=== PATIENT | male | born 1955 | race Caucasian/White ===

== ENCOUNTER 2016-07-01 22:21 | Emergency (ER) | payer SELFPAY ==
[2016-07-01 22:57] VITALS: BP 133/88
[2016-07-01] MEDS ORDERED: Acetaminophen/HYDROcodone 325-5 MG Tab PO ONE (23:53)
[2016-07-01] MEDS ORDERED: valACYclovir 1,000 MG Tab PO STA (23:53)
--- NOTE | 2016-07-01 23:59 | EDM.PDOC ---
ED HPI GENERAL MEDICAL PROBLEM - General Chief Complaint: Lower Extremity Injury/Pain Stated Complaint: POSS RASH ON LEFT LEG Time Seen by Provider: 07/01/16 23:22 Source of Information: Reports: Patient, Family (, daughter), RN Notes Reviewed History Limitations: Reports: No Limitations - History of Present Illness INITIAL COMMENTS - FREE TEXT/NARRATIVE: The patient states that he developed left sciatica 9 days ago, then developed a rash on his left leg, extending to his foot about 4 or 5 days ago. On further questioning, the patient states that by sciatica, he means a burning sensation extending from his lower back down his left lower extremity. The rash then developed on the sole of his left foot, and up the lateral aspect of his left leg onto the lateral aspect of his distal thigh, along the same course as the burning sensation. The rash is tender to palpation, and is made worse with using his left lower extremity. No weakness, tingling, or numbness to the left lower extremity. No prior similar symptoms. The patient does not have a PCP, however, he is on diclofenac for arthritis of his knees and Lamisil for toenail onychomycosis. Back Pain Score (Numeric/FACES): 7 - Related Data Allergies Allergy/AdvReac Type Severity Reaction Status Date / Time No Known Allergies Allergy Verified 07/01/16 22:54 Home Meds: Home Meds Diclofenac Sodium 75 mg PO DAILY 07/01/16 [History] Terbinafine [LamISIL] 250 mg PO DAILY 07/01/16 [History] Hydrocodone/Acetaminophen [Weston 5-325 Tablet] 1 - 2 tab PO Q8H PRN #12 tablet 07/02/16 [Rx] valACYclovir [Valtrex] 1 tab PO Q8H #20 tablet 07/02/16 [Rx] Past Medical History HEENT History: Reports: Impaired Vision Other HEENT History: Wears glasses Musculoskeletal History: Reports: Arthritis (knees) Social & Family History - Tobacco Use Smoking Status *Q: Never Smoker - Alcohol Use Alcohol Use History: Yes Alcohol Use Frequency: Rarely - Recreational Drug Use Recreational Drug Use: No - Living Situation & Occupation Living situation: Reports: , with Spouse, with Family (Daughter) Occupation: Employed (Part-time construction) Review of Systems - Review of Systems Review Of Systems: See Below Constitutional: Reports: No Symptoms Eyes: Reports: No Symptoms Ears: Reports: No Symptoms Nose: Reports: No Symptoms Mouth/Throat: Reports: No Symptoms Respiratory: Reports: No Symptoms Cardiovascular: Reports: No Symptoms GI/Abdominal: Reports: No Symptoms Genitourinary: Reports: No Symptoms Musculoskeletal: Reports: No Symptoms Skin: Reports: No Symptoms Neurological: Reports: No Symptoms Psychiatric: Reports: No Symptoms Trauma Exam - Physical Exam Exam: See Below Exam Limited By: No Limitations General Appearance: Reports: Alert, WD/WN, No Apparent Distress Extremities: No Evidence of Injury, Normal Range of Motion, No Pedal Edema Skin: Reports: Rash (Acicular, extending from the lateral aspect of the left lower semi-, just above the knee, down the lateral aspect of the left leg, and onto the anterior aspect of the sole of the foot, entirely consistent with a L5 (only) distribution.) Course - Vital Signs Last Recorded V/S: Last Vital Signs Temp 36.6 C 07/01/16 22:55 Pulse 77 07/01/16 22:55 Resp 16 07/01/16 22:55 BP 133/88 07/01/16 22:55 Pulse Ox 96 07/01/16 22:55 - Orders/Labs/Meds Meds: Medications Discontinued Medications Generic Name Dose Route Start Last Admin Trade Name Freq PRN Reason Stop Dose Admin Hydrocodone Bitart/Acetaminophen 2 tab 07/01/16 23:53 07/02/16 00:14 Weston 325-5 Mg PO 07/01/16 23:54 2 tab ONETIME ONE Administration Valacyclovir HCl 1,000 mg 07/01/16 23:53 Valtrex PO 07/01/16 23:54 ONETIME STA Valacyclovir HCl 500 mg 07/02/16 00:10 07/02/16 00:14 Valtrex PO 07/02/16 00:11 1,000 mg ONETIME ONE Administration - Re-Assessments/Exams Free Text/Narrative Re-Assessment/Exam: 07/02/16 00:05 The patient appears to have shingles involving his left L5 distribution. Although he is greater than 72 hours from the onset of his symptoms, his daughter states that he is continuing to have new vesicular lesions, therefore antiviral therapy is still indicated, although, as explained to the patient and his family, will not likely be of much benefit. Additionally, I will start the patient on Weston. I explained that Weston will likely cause nausea and constipation, and that he is not to drive for 12 hours after taking Weston. I will refer him to the clinic for followup. Departure - Departure Time of Disposition: 00:07 Disposition: Home, Self-Care 01 Condition: fair Clinical Impression: Varicella zoster - Discharge Information Prescriptions: Hydrocodone/Acetaminophen [Weston 5-325 Tablet] 1 - 2 tab PO Q8H PRN #12 tablet PRN Reason: Pain (Severe 7-10) valACYclovir [Valtrex] 1 tab PO Q8H #20 tablet Instructions: VIS, Shingles - [facility] [place] Referrals: PCP,None [Primary Care Provider] - Forms: ED Department Discharge Additional Instructions: You were seen in the emergency room for pain running from your lower back down your left lower extremity, along with a rash to your foot, leg, and a bit on your thigh. You have shingles. You have been started on the anti-viral medicine outstretched. Take one tablet every 8 hours, as prescribed. Finish the entire prescription. You have been started on the anti-pain medicine Weston. You may take 1 to 2 tablets up to every 8 hours, as needed for pain. Do not drive or operate heavy machinery for 12 hours after taking Weston. Weston may cause nausea and will likely cause constipation, so consider taking a stool softener. Followup with Sunni Valenzuela in the clinic for any concerns. If any other problems, please do not hesitate to return to the ER.
[2016-07-02] MEDS ORDERED: valACYclovir 500 MG Tab PO ONE (00:10)
== END 2016-07-02 00:40 | disposition home or self-care (01) ==
LOC: JD.ED 22:21
DX: B01.9 Varicella without complication (principal); B02.8 Zoster with other complications; Z79.899 Other long term (current) drug therapy
CPT/HCPCS: 99283; A9270

== ENCOUNTER 2023-02-06 07:30 | Day surgery (SDC) | payer MEDICARE, BC ==
[~2023-02-06 07:30] MED LIST: Lactated Ringers 1,000 ML IV SCH; Sodium Chloride 0.9% 10 ML Syringe FLUSH PRN; Sodium Chloride 0.9% 10 ML Syringe FLUSH SCH
[2023-02-06] MEDS ORDERED: Bupivacaine 0.25% 10 ML SDV ONE (07:38)
[2023-02-06] MEDS ORDERED: fentaNYL 100 MCG/2 ML SDV ONE (08:01)
[2023-02-06] MEDS ORDERED: Midazolam 1 MG/ML 2 ML SDV ONE (08:02)
[2023-02-06] MEDS ORDERED: Propofol 200 MG/20 ML SDV ONE (08:02)
[2023-02-06] MEDS ORDERED: Lidocaine 1% PF 2 ML SDV ONE (08:15)
[2023-02-06] MEDS ORDERED: ceFAZolin 2 GM Vial ONE (08:28)
[2023-02-06] MEDS ORDERED: Ondansetron 4 MG/2 ML SDV ONE (08:30)
[2023-02-06] MEDS ORDERED: HYDROmorphone 0.5 MG/0.5 ML Syringe IVPUSH PRN (08:34)
[2023-02-06] MEDS ORDERED: fentaNYL 100 MCG/2 ML SDV IVPUSH PRN (08:34)
[2023-02-06] MEDS ORDERED: Lactated Ringers 1,000 ML ONE (08:58)
[2023-02-06 11:32] VITALS: BP 118/72; PULSE 52
== END 2023-02-06 10:55 | disposition home or self-care (01) ==
LOC: JD.SDS 07:30
PROVIDERS: ATTEND Orthopaedic Surgery
DX: G56.21 Lesion of ulnar nerve, right upper limb (principal); E78.5 Hyperlipidemia, unspecified; Z79.899 Other long term (current) drug therapy; Z87.891 Personal history of nicotine dependence
CPT/HCPCS: 64718; J0690; J2250; J2405; J2704; J3010; J3490; J7120

== ENCOUNTER 2024-04-29 07:35 | Day surgery (SDC) | payer MEDICARE ==
[~2024-04-29 07:35] MED LIST changes: -Lactated Ringers 1,000 ML IV SCH
[2024-04-29] MEDS: Lactated Ringers 1,000 ML IV SCH (08:00)
[2024-04-29 08:04] LABS: BASOPHILS ABSOLUTE AUTO 0.1 K/mm3 (0.0-0.2); BASOPHILS PERCENT AUTO 0.8 % (0.0-1.0); EOSINOPHILS ABSOLUTE AUTO 0.2 K/mm3 (0.0-0.4); HEMATOCRIT 49.2 % (42.0-52.0); HEMOGLOBIN 16.3 gm/dl (14.0-18.0); IMMATURE GRAN ABSOLUTE AUTO 0.02 K/mm3 (0.00-0.05); IMMATURE GRAN PERCENT AUTO 0.3 % (0.0-0.4); LYMPHOCYTES ABSOLUTE AUTO 1.9 K/mm3 (1.0-4.8); LYMPHOCYTES PERCENT AUTO 27.1 % (24.0-44.0); MEAN CORPUSCULAR HEMOGLOBIN 28.5 pg (28.0-32.0); MEAN CORPUSCULAR HGB CONC 33.1 g/dl (32.0-36.0); MEAN PLATELET VOLUME 9.5 fl (9.4-12.4); MONOCYTES ABSOLUTE AUTO 0.7 K/mm3 (0.0-0.8); MONOCYTES PERCENT AUTO 9.6 % (0.0-8.0); NEUTROPHILS ABSOLUTE AUTO 4.2 K/mm3 (1.8-7.7); NEUTROPHILS PERCENT AUTO 59.2 % (41.0-71.0); PLATELET COUNT,PLT 227 K/mm3 (150-400); RED BLOOD CELL COUNT 5.72 M/mm3 (4.52-5.90); WHITE BLOOD CELL COUNT,WBC 7.09 K/mm3 (3.9-11.3)
[2024-04-29] MEDS: Acetaminophen 325 MG Tab PO ONE (08:16)
[2024-04-29] MEDS: oxyCODONE ER 10 MG TAB.ER PO ONE (08:16)
[2024-04-29] MEDS: Pregabalin 25 MG Cap PO ONE (08:16)
[2024-04-29 08:36] LABS: INR 1.03; PROTHROMBIN TIME 10.9 SECONDS (9.7-12.0)
[2024-04-29] MEDS ORDERED: ceFAZolin 2 GM Vial ONE (09:17)
[2024-04-29] MEDS ORDERED: Propofol 200 MG/20 ML SDV ONE ×5 (09:19→11:57)
[2024-04-29] MEDS ORDERED: fentaNYL 100 MCG/2 ML SDV ONE (09:19)
[2024-04-29] MEDS ORDERED: dexmedeTOMIDine HCl 200 MCG/2 ML SDV ONE (09:27)
[2024-04-29] MEDS ORDERED: Dexamethasone 4 MG/ML 5 ML MDV ONE (09:27)
[2024-04-29] MEDS ORDERED: Ropivacaine 0.5% 5 MG/ML 30 ML SDV ONE (09:36)
[2024-04-29] MEDS ORDERED: EPINEPHrine 1 MG/ML SDV ONE (09:42)
[2024-04-29] MEDS ORDERED: Ondansetron 4 MG/2 ML SDV ONE (10:07)
[2024-04-29] MEDS ORDERED: ePHEDrine 50 MG/ML SDV ONE (10:39)
[2024-04-29] MEDS ORDERED: Lactated Ringers 1,000 ML ONE (11:11)
[2024-04-29] MEDS: Morphine 8 MG, EPINEPHrine 0.3 MG, Cefuroxime 750 MG, Ketorolac 30 MG, Sodium Chloride ... PRN (12:08)
[2024-04-29] MEDS: Tranexamic Acid 1,000 MG/10 ML Vial ONE (12:13)
[2024-04-29] MEDS: VANCOmycin 1 GM SDV ONE (12:13)
[2024-04-29] MEDS ORDERED: fentaNYL 100 MCG/2 ML SDV IVPUSH PRN (12:53)
[2024-04-29] MEDS ORDERED: HYDROmorphone 0.5 MG/0.5 ML Syringe IVPUSH PRN (12:53)
[2024-04-29] MEDS ORDERED: Ondansetron 4 MG/2 ML SDV IVPUSH PRN (12:53)
[2024-04-29] MEDS: oxyCODONE 5 MG Tab PO ONE (13:55)
[2024-04-29 14:50] VITALS: PULSE 77
[2024-04-29 15:53] VITALS: BP 114/74
== END 2024-04-29 15:40 ==
LOC: JD.SDS 07:35
PROVIDERS: ATTEND Orthopaedic Surgery
DX: M17.12 Unilateral primary osteoarthritis, left knee (principal); M23.52 Chronic instability of knee, left knee; E78.00 Pure hypercholesterolemia, unspecified; Z87.891 Personal history of nicotine dependence; Z79.899 Other long term (current) drug therapy
CPT/HCPCS: 0055T; 27447; 36415; 64447; 73560; 85025; 85610; 85730; 97116; 97161; A9270; C1713; C1776; J0171; J0690; J0697; J1100; J1885; J2272; J2405; J2704; J2795; J3010; J7120; 01400; J3490